=== PATIENT | male | born 1940 | race Caucasian/White ===

== ENCOUNTER 2016-11-07 14:21 | Emergency (ER) | payer MEDICARE ==
[~2016-11-07] VITALS: Ht 180.3 cm; Wt 106.0 kg
[2016-11-07 15:40] LABS: HEMATOCRIT 58.2 % (39.0-50.0); HEMOGLOBIN 19.9 g/dl (14.0-18.0); IMMATURE GRANULOCYTES 0.5 % (0.0-1.0); MEAN CELL VOLUME 91.7 fL CALC (80.0-100.0); MEAN CORPUSCULAR HGB 31.3 pG CALC (26.0-32.0); MEAN CORPUSCULAR HGB CONC 34.2 g/L CALC (32.0-36.0); NEUT# 4.55 thou/uL (1.82-7.42); RED BLOOD COUNT 6.35 mill/uL (4.70-6.10); RED CELL DISTRI WIDTH 13.8 % (11.5-15.5)
[2016-11-07 15:59] LABS: ALBUMIN 4.4 g/dL (3.2-5.0); ALKALINE PHOSPHATASE 56 u/l (38-126); ANION GAP 17 (6-22 (CALC)); BILIRUBIN, TOTAL 0.9 mg/dL (0.0-1.4); BUN 13 mg/dL (8-23); BUN/CREATININE RATIO 15 (12-20 (CALC)); CALCIUM 9.7 mg/dL (8.4-10.2); CARBON DIOXIDE 23 mmol/l (22-30); CHLORIDE 104 mmol/l (95-108); CREATININE 0.9 mg/dL (0.7-1.3); GFR > 60 ML/MIN (>=60 (CALC)); GFR FOR AFR.AMER. > 60 ML/MIN (>=60 (CALC)); GLUCOSE 104 mg/dL (82-115); SGOT/AST 22 u/l (19-48); SGPT/ALT 25 u/l (11-66); SODIUM 140 mmol/l (137-146); TOTAL PROTEIN 7.8 g/dL (6.3-8.2)
[2016-11-07 16:09] LABS: MYOGLOBIN 52 ng/mL (0 - 121)
[2016-11-07] MEDS ORDERED: AMOXICILLIN500 MG PO (16:32)
[2016-11-07 16:37] VITALS: BP 161/97
[2016-11-08] MEDS ORDERED: ARMOUR THYRO60 MG PO (17:21)
[2016-11-08] MEDS ORDERED: LISINOPRIL20 M1 PO (17:21)
== END 2016-11-07 16:45 | disposition home or self-care (01) ==
LOC: ED 14:21
PROVIDERS: Emergency Medicine
PROC: 0JQP0ZZ Repair Left Lower Leg Subcutaneous Tissue and Fascia, Open Approach (ICD-10-PCS; principal; 2016-11-07)
DX: S81.812A Laceration without foreign body, left lower leg, initial encounter (principal); W30.89XA Contact with other specified agricultural machinery, initial encounter; Y93.89 Activity, other specified; Y92.009 Unspecified place in unspecified non-institutional (private) residence as the place of occurrence of the external cause; R94.31 Abnormal electrocardiogram [ECG] [EKG]; I10 Essential (primary) hypertension

== ENCOUNTER 2016-11-08 16:59 | Emergency (ER) | payer MEDICARE ==
[~2016-11-08] VITALS: Ht 180.3 cm; Wt 106.8 kg
[~2016-11-08 16:59] MED LIST: AMOXICILLIN500 MG PO
[2016-11-08] MEDS ORDERED: LISINOPRIL20 M1 PO (17:21)
[2016-11-08] MEDS ORDERED: ARMOUR THYRO60 MG PO (17:21)
[2016-11-08 17:29] VITALS: BP 143/86
== END 2016-11-08 17:30 | disposition home or self-care (01) ==
LOC: ED 16:59
DX: S81.812D Laceration without foreign body, left lower leg, subsequent encounter (principal); I10 Essential (primary) hypertension; X58.XXXD Exposure to other specified factors, subsequent encounter

== ENCOUNTER 2016-11-14 12:01 | Emergency (ER) | payer MEDICARE ==
[~2016-11-14] VITALS: Ht 180.3 cm; Wt 106.0 kg
[~2016-11-14 12:01] MED LIST changes: +ARMOUR THYRO60 MG PO; +LISINOPRIL20 M1 PO
[2016-11-14] MEDS ORDERED: CLEOCIN150 MG PO (13:46)
[2016-11-14] MEDS ORDERED: TRAMADOL HYDROC50 MG PO (13:46)
[2016-11-14 14:07] VITALS: BP 123/77
== END 2016-11-14 14:20 | disposition home or self-care (01) ==
LOC: ED 12:01
DX: S81.812D Laceration without foreign body, left lower leg, subsequent encounter (principal); L08.9 Local infection of the skin and subcutaneous tissue, unspecified; M79.89 Other specified soft tissue disorders; M79.662 Pain in left lower leg; W29.8XXD Contact with other powered hand tools and household machinery, subsequent encounter

== ENCOUNTER 2019-11-12 18:35 | Observation (INO) | payer MEDICARE ==
[~2019-11-12] VITALS: Ht 180.3 cm; Wt 92.0 kg
[~2019-11-12 18:35] MED LIST changes: +CLEOCIN150 MG PO; +TRAMADOL HYDROC50 MG PO
--- NOTE | 2019-11-12 18:40 | NUR ---
PT AMBULATORY TO ROOM WITH A STEADY GAIT FOR BEDSIDE TRIAGE.
--- NOTE | 2019-11-12 19:04 | NUR ---
A/O M WITH SUDDEN FEVER TODAY OF 103 AT HOME AND CURRICULUM AND ASSESSMENT COORDINATOR COUGH NO SORE THROAT NO DYSPNEA NO DIFF SWALLOWING.TOOK NO ANTIPYRETICS BUT DID TAKE ZITHROMAX AND PLAQUENIL AT NOON.W/FR FACE AND DRY SKIN.CLEAR BILAT BREATH SOUNDS NON-SMOKER.
[2019-11-12 19:54] LABS: URINE BILIRUBIN - DIPSTICK NEGATIVE (NEGATIVE); URINE BLOOD DIPSTICK SMALL (NEGATIVE); URINE COLOR YELLOW; URINE GLUCOSE - DIPSTICK NEGATIVE (NEGATIVE); URINE KETONE TRACE mg/dL (NEGATIVE); URINE PROTEIN - DIPSTICK NEGATIVE (NEG-TRACE); URINE UROBILINOGEN - DIPSTICK 0.2 E.U./dL (0.2)
[2019-11-12 19:56] LABS: HEMATOCRIT 52.1 % (39.0-50.0); IMMATURE GRANULOCYTES 0.3 % (0.0-5.0); MEAN CELL VOLUME 90.8 fL CALC (80.0-100.0); MEAN CORPUSCULAR HGB 30.7 pG CALC (26.0-32.0); MEAN CORPUSCULAR HGB CONC 33.8 g/dL CAL (32.0-36.0); NEUT# 12.99 thou/uL (1.82-7.42); RED BLOOD COUNT 5.74 mill/uL (4.70-6.10); RED CELL DISTRI WIDTH 14.4 % (11.5-15.5)
[2019-11-12 19:57] LABS: HEMOGLOBIN 17.6 g/dl (14.0-18.0)
[2019-11-12] MEDS ORDERED: AZITHROMYCIN500 MG PO (19:59)
[2019-11-12] MEDS ORDERED: HYDROXYCHLOR200 M1 PO (20:00)
[2019-11-12 20:16] LABS: URINE LEUK ESTERASE LARGE (NEGATIVE); URINE NITRITE - DIPSTICK POSITIVE (Negative)
[2019-11-12 20:17] LABS: URINE BACTERIA MANY hpf; URINE SQUAMOUS EPITHELIAL CELL FEW EPI/hpf (0-FEW); URINE WBC TNTC WBC/hpf (0-5)
--- NOTE | 2019-11-12 20:30 | NUR ---
NO COUGH NO CONGESTION FEVER IS RESOLVING A/OX3 SR WITHOUT ST T CHANGES NO ECTOPY
[2019-11-12 21:07] LABS: ALBUMIN 4.4 g/dL (3.2-5.0); ALKALINE PHOSPHATASE 71 u/l (38-126); ANION GAP 15 (6-22 (CALC)); BILIRUBIN, TOTAL 1.1 mg/dL (0.0-1.4); BUN 13 mg/dL (8-23); BUN/CREATININE RATIO 16 (12-20 (CALC)); CARBON DIOXIDE 20 mmol/l (22-30); CHLORIDE 103 mmol/l (95-108); CREATININE 0.8 mg/dL (0.7-1.3); GFR > 60 ML/MIN (>=60 (CALC)); GFR FOR AFR.AMER. > 60 ML/MIN (>=60 (CALC)); POTASSIUM 4.1 mmol/l (3.5-5.1); SGOT/AST 50 u/l (19-48); SODIUM 134 mmol/l (137-146); TOTAL PROTEIN 7.5 g/dL (6.3-8.2)
--- NOTE | 2019-11-12 22:27 | NUR ---
PHONE REPORT TO [facility] ON [facility]
--- NOTE | 2019-11-12 22:32 | NUR ---
PTTRANSPORTED TO [facility] RM 282 VIA WC O2 IN IMPROVED STABLE CONDITION
[2019-11-12 22:42] VITALS: BP 140/71
--- NOTE | 2019-11-12 23:30 | NUR ---
PATIENT ADMITTED FROM ER VIA WHEELCHAIR WITH ER STAFF IN ATTENDACE. PATIENT ABLE TO TRANSFER TO BED. FACE IS FLUSHED. AWAKE ALERT AND ORIENTEDX3. PATIENT PLACED ON ISOLATION IN NEG PRESSURE ROOM. RAPID IGM AND IgG NEG BUT PATIENT WITH FEVER. NASAL SWAB WAS DONE WITH NO RESULTS AT THIS TIME. PATIENT WITH IV SITE TO LEFT HAND. AZITHROMYCIN INFUSING ORDERED, SITE IS HEALTHY AT THIS TIME. PATIENT STATES THAT HE STARTED WITH HIGH FEVER THIS AFTERNOON AND CAME TO THE ER. ASSESSMENT COMPLETED. PATIENT ORIENTED TO ROOM AND SURROUNDINGS. INSTRUCTED ON USE OF NURSE CALL LIGHT SYSTEM, TV REMOTE AND PHONE. SAFETY PRECAUTIONS REINFORCED. CALL LIGHT IN REACH. WILL CONT TO MONITOR.
[2019-11-12 23:54] VITALS: BP 114/66
--- NOTE | 2019-11-13 03:52 | NUR ---
PATIENT APPEARS SLEEPING POSITIONED ON LEFT SIDE. RESP ARE EVEN AND UNLABORED. VOIDED 200CC OF DIONTE URINE IN URINAL. IVF PATENT ANDINFUSING VIA LAC ORDERED. CALL LIGHT IN REACH. WILL CONT TO MONITOR.
[2019-11-13 04:06] VITALS: BP 113/68
--- NOTE | 2019-11-13 04:47 | NUR ---
PATIENT RESTING IN BED AT THIS TIME-STATES THAT HE IS FEELING BETTER THIS MPORNING. AFEBRILE THIS MORNING. IVF PATENT AND INFUSING VIA LAC SITE ORDERED. LAB WORK DRAWN VIA RAC SITE WITH GOOD BLOOD RETURN, ISOLATION AND NEG PRESSURE ROOM RMAINS IN PLACE. CALL LIGHT IN REACH. WILL CONT TO MONITOR.
[2019-11-13 04:48] LABS: HEMATOCRIT 50.5 % (39.0-50.0); HEMOGLOBIN 16.5 g/dl (14.0-18.0); IMMATURE GRANULOCYTES 0.5 % (0.0-5.0); MEAN CELL VOLUME 92.8 fL CALC (80.0-100.0); MEAN CORPUSCULAR HGB 30.3 pG CALC (26.0-32.0); MEAN CORPUSCULAR HGB CONC 32.7 g/dL CAL (32.0-36.0); NEUT# 9.96 thou/uL (1.82-7.42); RED BLOOD COUNT 5.44 mill/uL (4.70-6.10); RED CELL DISTRI WIDTH 14.6 % (11.5-15.5)
[2019-11-13 05:06] LABS: ANION GAP 11 (6-22 (CALC)); BUN 14 mg/dL (8-23); BUN/CREATININE RATIO 16 (12-20 (CALC)); CHLORIDE 104 mmol/l (95-108); CREATININE 0.9 mg/dL (0.7-1.3); GFR > 60 ML/MIN (>=60 (CALC)); GFR FOR AFR.AMER. > 60 ML/MIN (>=60 (CALC)); POTASSIUM 3.9 mmol/l (3.5-5.1); SODIUM 136 mmol/l (137-146)
[2019-11-13 05:08] LABS: CARBON DIOXIDE 25 mmol/l (22-30)
[2019-11-13 08:15] VITALS: BP 142/82
--- NOTE | 2019-11-13 08:15 | NUR ---
PT SLEEPING IN BED AWAKENED TO COMPLETE ASSESSMENT. A&O X3. NO DISTRESS NOTED, O2 VIA NC @2L IN PLACE. PER PT HE IS NOT O2 DEPENDENT AT HOME. ALSO STATES THAT HE WOULD PREFER TO SPEAK TO THE PHYSICIAN IN REGARDS TO CONTINUING HIS PLAQUENIL. HE STATES THAT HE STARTED TAKING IT YESTERDAY DUE TO HIS SYMPTOMS. NARCOLEPSY EPISODE NOTED. PT ENGAGED BACK INTO CONVERSATION SHORTLY AFTER. PT STATES THAT HE WOULD PREFER TO BE WITHOUT O2, O2 % 95 WITHOUT O2. O2 LEFT AT BEDSIDE IN CASE IT IS NEEDED. ASSESSMENT COMPLETED. DISCUSSED POC. CALL LIGHT IN REACH. CONTINUE TO MONITOR. ISOLATION PERCAUTIONS IN PLACE AND EXPLAINED.
--- NOTE | 2019-11-13 10:45 | NUR ---
PT IN RESTROOM. NO DISTRESS OR NEEDS AT THIS TIME. CALL LIGHT IN REACH. CONTINUE TO MONITOR
--- NOTE | 2019-11-13 11:30 | NUR ---
BROUGHT IN PRESCRIPTION OF SILAS THYROID MEDICATION THAT PT TAKES EVERY DAY. MEDICATION TO BE SENT TO PHARMACY TO BE PROFILED.
--- NOTE | 2019-11-13 13:25 | NUR ---
PT LAYING IN BED. NO DISTRESS NOTED. NO OTHER NEEDS AT THIS TIME. CALL LIGHT IN REACH. CONTINUE TO MONITOR.
[2019-11-13 16:38] VITALS: BP 141/76
--- NOTE | 2019-11-13 19:30 | NUR ---
PATIENT RESTING IN BED AT THIS TIME. AWAKE ALERT AND ORIENTEDX3 WITH NO COMPLAINTS OR CONCERNS AT THIS TIME. VS TAKEN AND RECORDED. AFEBRILE AT THIS TIME. VOIDING YELLOW URINE IN URINAL. IVF NS PATENT AND INFUSING VIA LEFT HAND SITE A5T 125CC/HR. SAFETY PRECUAITONS REINFORCED. CALL LIGHT IN REACH. WILL CONT TO MONITOR.
[2019-11-13 20:25] VITALS: BP 150/85
--- NOTE | 2019-11-13 23:00 | NUR ---
PATIENT RESTING IN BED-MEDICATED WITH ROCEPHIN ORDERED VIA LEFT AC IV SITE. SITE IS HEALTHY AT THIS TIME. NO COMPLAINTS AT THIS TIME. CALL LIGHT IN REACH. WILL CONT TO MONITOR.
[2019-11-14 04:07] VITALS: BP 119/67
--- NOTE | 2019-11-14 04:15 | NUR ---
PATIENT RESTING IN BED-POSITIONED ON RIGHT SITE-APPEARS SLEEPING WITH EYES CLOSED. RESP ARE EVEN AND UNLABORED. IVF NS PATENT AND INFUSING VIA LEFT AC SITE AT 125CC/HR. SITE IS HEALTHY. VOIDING QS YELLOW URINE IN URINAL. CALL LIGHT IN REACH. WILL CONT TO MONITOR.
[2019-11-14 07:51] VITALS: BP 144/85
[2019-11-14 08:57] VITALS: BP 144/85
[2019-11-14] MEDS ORDERED: BACTRIM DS1 TAB PO (09:29)
--- NOTE | 2019-11-14 10:35 | NUR ---
PT AWAKE, ALERT, ORIENTED X 3. LUNGS CLEAR, DECREASED BASES. NO ELEVATED TEMPERATURE, 98.5. PT FEELS BETTER. PT HAS BEEN DISCHARGED TO HOME. PT VERBALIZED UNDERSTANDING OF DC INSTRUCTIONS, TAKEN TO [facility] OUTSIDE BY WHEELCHAIR TO WAIT FOR HIS . PT LEAVES [facility] IN STABLE CONDITION.
--- NOTE | 2019-11-15 09:18 | NUR ---
Notifed patient of Covid results (Negative). Advised patient to follow up with PCP or return to ED for urgent needs. Advised patient to continue practicing Covid prevention. Patient verbalized understanding.
== END 2019-11-14 10:08 | disposition home or self-care (01) ==
LOC: ED 18:35 → ED-I 21:38 → ED 21:56 → MS2 21:57
PROVIDERS: Family Medicine; ADMIT Internal Medicine; ATTEND Internal Medicine
DX: N39.0 Urinary tract infection, site not specified (principal); I10 Essential (primary) hypertension; E03.9 Hypothyroidism, unspecified; B96.89 Other specified bacterial agents as the cause of diseases classified elsewhere; Z20.828 Contact with and (suspected) exposure to other viral communicable diseases
CPT/HCPCS: G0378; J1650

== ENCOUNTER 2021-12-07 21:30 | Inpatient (IN) | payer MEDICARE ==
[~2021-12-07] VITALS: Ht 180.3 cm; Wt 115.0 kg
[~2021-12-07 21:30] MED LIST changes: +AZITHROMYCIN500 MG PO; +BACTRIM DS1 TAB PO; +HYDROXYCHLOR200 M1 PO
[2021-12-07 21:40] VITALS: BP 112/75
[2021-12-07 22:01] VITALS: BP 99/68
[2021-12-07 22:21] LABS: IMMATURE GRANULOCYTES 0.3 % (0.0-5.0); MEAN CELL VOLUME 85.8 fL CALC (80.0-100.0); MEAN CORPUSCULAR HGB 27.9 pG CALC (26.0-32.0); MEAN CORPUSCULAR HGB CONC 32.6 g/dL CAL (32.0-36.0); NEUT# 12.28 thou/uL (1.82-7.42); RED BLOOD COUNT 6.62 mill/uL (4.70-6.10); RED CELL DISTRI WIDTH 19.8 % (11.5-15.5)
[2021-12-07 22:22] LABS: HEMATOCRIT 56.8 % (39.0-50.0); HEMOGLOBIN 18.5 g/dl (14.0-18.0)
[2021-12-07 22:31] VITALS: BP 106/77
[2021-12-07 22:38] LABS: ALBUMIN 4.4 g/dL (3.2-5.0); ALKALINE PHOSPHATASE 83 u/l (38-126); AMYLASE 69 u/l (30-110); ANION GAP 17 (6-22 (CALC)); BUN 14 mg/dL (8-23); BUN/CREATININE RATIO 8 (12-20 (CALC)); CARBON DIOXIDE 26 mmol/l (22-30); CHLORIDE 101 mmol/l (95-108); CREATININE 1.7 mg/dL (0.7-1.3); GFR 39 ML/MIN (>=60 (CALC)); GFR FOR AFR.AMER. 47 ML/MIN (>=60 (CALC)); LIPASE 109 u/l (23-300); POTASSIUM 4.3 mmol/l (3.5-5.1); SGOT/AST 26 u/l (19-48); SODIUM 140 mmol/l (137-146); TOTAL PROTEIN 8.2 g/dL (6.3-8.2)
[2021-12-07 22:50] LABS: MYOGLOBIN 126 ng/mL (0 - 121)
[2021-12-07 23:01] VITALS: BP 127/89
[2021-12-07 23:01] LABS: D-DIMER 4.02 mg/L (0.19-0.60)
[2021-12-07 23:03] LABS: BILIRUBIN, TOTAL 1.1 mg/dL (0.0-1.4)
[2021-12-07 23:05] LABS: ACT PARTIAL THROMBO TIME 24.2 SECONDS (20.0-32.5); PROTHROMBIN TIME 13.4 SECONDS (9.0-12.5)
[2021-12-07 23:09] LABS: INTERNATIONAL NORMALIZED RATIO 1.3 RATIO (0.7-1.3)
[2021-12-07 23:31] VITALS: BP 128/90
[2021-12-08] VITALS (20 sets, daily range): BP systolic 113–163; BP diastolic 56–107
[2021-12-08 02:36] LABS: URINE BILIRUBIN - DIPSTICK NEGATIVE (NEGATIVE); URINE BLOOD DIPSTICK TRACE-INTACT (NEGATIVE); URINE GLUCOSE - DIPSTICK NEGATIVE (NEGATIVE); URINE KETONE TRACE mg/dL (NEGATIVE); URINE PH 6.5 (4.5-8.0); URINE PROTEIN - DIPSTICK 30 mg/dL (NEG-TRACE); URINE SPECIFIC GRAVITY <=1.005; URINE UROBILINOGEN - DIPSTICK 0.2 E.U./dL (0.2)
[2021-12-08 02:44] LABS: URINE COLOR DK. YELLOW; URINE LEUK ESTERASE MODERATE (NEGATIVE); URINE NITRITE - DIPSTICK POSITIVE (Negative)
[2021-12-08 02:47] LABS: URINE BACTERIA MODERATE hpf; URINE SQUAMOUS EPITHELIAL CELL FEW EPI/hpf (0-FEW); URINE WBC 50-100 WBC/hpf (0-5)
[2021-12-08 12:16] LABS: HEMATOCRIT 52.4 % (39.0-50.0); HEMOGLOBIN 16.8 g/dl (14.0-18.0); IMMATURE GRANULOCYTES 0.2 % (0.0-5.0); MEAN CELL VOLUME 86.8 fL CALC (80.0-100.0); MEAN CORPUSCULAR HGB 27.8 pG CALC (26.0-32.0); MEAN CORPUSCULAR HGB CONC 32.1 g/dL CAL (32.0-36.0); NEUT# 10.42 thou/uL (1.82-7.42); RED BLOOD COUNT 6.04 mill/uL (4.70-6.10); RED CELL DISTRI WIDTH 19.9 % (11.5-15.5)
[2021-12-08 12:35] LABS: ALBUMIN 3.8 g/dL (3.2-5.0); ALKALINE PHOSPHATASE 63 u/l (38-126); ANION GAP 13 (6-22 (CALC)); BILIRUBIN, TOTAL 0.7 mg/dL (0.0-1.4); BUN 19 mg/dL (8-23); BUN/CREATININE RATIO 14 (12-20 (CALC)); CARBON DIOXIDE 29 mmol/l (22-30); CHLORIDE 103 mmol/l (95-108); CREATININE 1.3 mg/dL (0.7-1.3); GFR 53 ML/MIN (>=60 (CALC)); GFR FOR AFR.AMER. > 60 ML/MIN (>=60 (CALC)); POTASSIUM 4.5 mmol/l (3.5-5.1); SGOT/AST 20 u/l (19-48); SODIUM 140 mmol/l (137-146); TOTAL PROTEIN 6.8 g/dL (6.3-8.2)
[2021-12-09 00:29] VITALS: BP 119/75
[2021-12-09 04:33] VITALS: BP 130/68
[2021-12-09 05:33] LABS: HEMATOCRIT 46.5 % (39.0-50.0); IMMATURE GRANULOCYTES 0.2 % (0.0-5.0); MEAN CELL VOLUME 89.3 fL CALC (80.0-100.0); MEAN CORPUSCULAR HGB 27.6 pG CALC (26.0-32.0); NEUT# 5.77 thou/uL (1.82-7.42); RED BLOOD COUNT 5.21 mill/uL (4.70-6.10); RED CELL DISTRI WIDTH 19.7 % (11.5-15.5)
[2021-12-09 05:56] LABS: ALKALINE PHOSPHATASE 48 u/l (38-126); BILIRUBIN, TOTAL 0.7 mg/dL (0.0-1.4); BUN 14 mg/dL (8-23); BUN/CREATININE RATIO 15 (12-20 (CALC)); CHLORIDE 110 mmol/l (95-108); GFR > 60 ML/MIN (>=60 (CALC)); GFR FOR AFR.AMER. > 60 ML/MIN (>=60 (CALC)); SGOT/AST 21 u/l (19-48); SODIUM 139 mmol/l (137-146); TOTAL PROTEIN 5.8 g/dL (6.3-8.2)
[2021-12-09 05:58] LABS: POTASSIUM 4.3 mmol/l (3.5-5.1)
[2021-12-09 05:59] LABS: HEMOGLOBIN 14.4 g/dl (14.0-18.0)
[2021-12-09 06:03] LABS: ANION GAP 10 (6-22 (CALC)); CARBON DIOXIDE 23 mmol/l (22-30)
[2021-12-09 06:29] VITALS: BP 135/61
[2021-12-09 08:08] VITALS: BP 135/61
[2021-12-09] MEDS ORDERED: LEVAQUIN750 M1 PO (13:33)
[2021-12-09] MEDS ORDERED: VENTOLIN HFA108 MCG IN (13:33)
== END 2021-12-09 14:14 | disposition home or self-care (01) | DRG 336 ==
LOC: ED 21:30 → ED-I 12-08 03:50 → ED 12-08 04:06 → MS2 12-08 04:07
PROVIDERS: Family Medicine; ADMIT Internal Medicine; ATTEND Internal Medicine
PROC: 0DN84ZZ Release Small Intestine, Percutaneous Endoscopic Approach (ICD-10-PCS; principal; 2021-12-08)
DX: K56.50 Intestinal adhesions [bands], unspecified as to partial versus complete obstruction (principal); N39.0 Urinary tract infection, site not specified; N17.9 Acute kidney failure, unspecified; E86.0 Dehydration; I10 Essential (primary) hypertension; E03.9 Hypothyroidism, unspecified; G47.419 Narcolepsy without cataplexy; B96.1 Klebsiella pneumoniae [K. pneumoniae] as the cause of diseases classified elsewhere; Z87.440 Personal history of urinary (tract) infections; Z90.49 Acquired absence of other specified parts of digestive tract; Z20.822 Contact with and (suspected) exposure to COVID-19; J40 Bronchitis, not specified as acute or chronic
CPT/HCPCS: J0131; J1650; Q9967

== ENCOUNTER 2022-08-02 15:34 | Emergency (ER) | payer MEDICARE ==
[~2022-08-02] VITALS: Ht 180.3 cm; Wt 113.3 kg
[~2022-08-02 15:34] MED LIST changes: +LEVAQUIN750 M1 PO; +VENTOLIN HFA108 MCG IN
[2022-08-02 15:42] VITALS: BP 184/97
[2022-08-02 16:01] VITALS: BP 170/100
[2022-08-02 16:21] LABS: BASO% 0.3 % (0-3); EOS% 0.3 % (0-8); HEMATOCRIT 50.5 % (39.0-50.0); IMMATURE GRANULOCYTES 0.1 % (0.0-5.0); LYMPH% 13.2 % (15-41); MEAN CORPUSCULAR HGB CONC 34.5 g/dL CAL (32.0-36.0); MONO% 19.9 % (2-13); NEUT# 4.47 thou/uL (1.82-7.42); NEUT% 66.2 % (42-76); RED BLOOD COUNT 5.27 mill/uL (4.70-6.10); RED CELL DISTRI WIDTH 14.8 % (11.5-15.5)
[2022-08-02 16:23] LABS: HEMOGLOBIN 17.4 g/dl (14.0-18.0); MEAN CELL VOLUME 95.8 fL CALC (80.0-100.0)
[2022-08-02 16:31] VITALS: BP 134/79
[2022-08-02] MEDS ORDERED: GABAPENTIN100 MG PO (16:40)
[2022-08-02 16:41] LABS: ALKALINE PHOSPHATASE 68 u/l (38-126); BUN 11 mg/dL (8-23); BUN/CREATININE RATIO 13 (12-20 (CALC)); CHLORIDE 103 mmol/l (95-108); CREATININE 0.9 mg/dL (0.7-1.3); GFR FOR AFR.AMER. > 60 ML/MIN (>=60 (CALC)); GFR OTHER RACES > 60 ML/MIN (>=60 (CALC)); POTASSIUM 4.1 mmol/l (3.5-5.1); SGOT/AST 36 u/l (19-48); SODIUM 137 mmol/l (137-146)
[2022-08-02 16:42] LABS: ANION GAP 9 (6-22 (CALC)); CARBON DIOXIDE 29 mmol/l (22-30)
[2022-08-02 16:43] LABS: ALBUMIN 4.1 g/dL (3.2-5.0); BILIRUBIN, TOTAL 0.4 mg/dL (0.0-1.4); TOTAL PROTEIN 7.4 g/dL (6.3-8.2)
[2022-08-02 17:01] VITALS: BP 164/89
[2022-08-02 17:17] LABS: URINE BILIRUBIN - DIPSTICK NEGATIVE (NEGATIVE); URINE BLOOD DIPSTICK TRACE-INTACT (NEGATIVE); URINE COLOR YELLOW; URINE GLUCOSE - DIPSTICK NEGATIVE (NEGATIVE); URINE KETONE 40 mg/dL (NEGATIVE); URINE LEUK ESTERASE NEGATIVE (NEGATIVE); URINE PH 6.5 (4.5-8.0); URINE PROTEIN - DIPSTICK NEGATIVE (NEG-TRACE); URINE SPECIFIC GRAVITY 1.025; URINE UROBILINOGEN - DIPSTICK 0.2 E.U./dL (0.2)
[2022-08-02 17:19] LABS: URINE NITRITE - DIPSTICK NEGATIVE (Negative)
[2022-08-02] MEDS ORDERED: BACLOFEN10 MG PO ×3 (17:29→18:09)
[2022-08-02] MEDS ORDERED: TAM75CAP PO ×3 (17:29→18:09)
[2022-08-02] MEDS ORDERED: AMOX/K CLAV875 M1 PO ×3 (17:29→18:09)
[2022-08-02] MEDS ORDERED: ZPAK PO ×3 (17:29→18:09)
[2022-08-02 18:05] VITALS: BP 164/89
== END 2022-08-02 18:13 | disposition home or self-care (01) ==
LOC: ED 15:34
PROVIDERS: Family Medicine
DX: J11.00 Influenza due to unidentified influenza virus with unspecified type of pneumonia (principal); R06.6 Hiccough; I10 Essential (primary) hypertension; E03.9 Hypothyroidism, unspecified; Z20.822 Contact with and (suspected) exposure to COVID-19